=== PATIENT | male | born 1970 | race Caucasian/White ===

== ENCOUNTER 2018-10-07 17:02 | Observation (INO) | payer OTHER, SELFPAY ==
[2018-10-07 17:32] LABS: #Basophils 0.1 thou/uL (0.0-0.2); #Eosinphils 0.2 thou/uL (0.0-0.7); #Lymphocytes 2.2 thou/uL (1.20-3.40); #Monocytes 0.7 thou/uL (0.11-0.59); #Neutrophils 4.3 thou/uL (1.40-6.50); %Basophils 1.2 % (0.0-1.0); %Eosinophils 2.9 % (0.0-10.0); %Lymphocytes 29.5 % (21.0-51.0); %Monocytes 9.2 % (0.0-10.0); %Neutrophils 57.2 % (42.0-75.0); Hemoglobin 14.8 g/dL (14.0-18.0); Mean Corpuscular HGB CONC 33.9 g/dL (32.0-36.0); Mean Corpuscular Hemoglobin 29.4 pg (27.0-31.0); Mean Corpuscular Volume 86.7 fL (78.0-98.0); Mean Platelet Volume 8.6 fL (7.4-10.4); Platelet Count 227 thou/uL (130-400); RBC Distribution Width 12.9 % (11.5-14.5); Red Blood Cell (RBC) Count 5.04 mill/uL (4.70-6.10); White Blood Cell (WBC) Count 7.6 thou/uL (4.8-10.8)
[2018-10-07 17:54] LABS: ALT (SGPT) 14 U/L (8-55); AST (SGOT) 14 U/L (5-34); Albumin 4.1 g/dL (3.5-5.0); Alkaline Phosphatase 130 U/L (40-150); Anion Gap 15 mmol/L (10-20); BUN (Urea Nitrogen) 13 mg/dL (8.9-20.6); Bilirubin, Total 0.6 mg/dL (0.2-1.2); CK (CPK) 80 U/L (30-200); Calc. Creatinine Clearance 0 mL/min (70-130); Calcium 9.8 mg/dL (7.8-10.44); Carbon Dioxide 23 mmol/L (22-29); Chloride 105 mmol/L (98-107); Estimated GFR-MDRD 83; Globulin 3.4 g/dL (2.4-3.5); Glucose 82 mg/dL (70-105); Lipase 31 U/L (8-78); Potassium 4.4 mmol/L (3.5-5.1); Protein, Total 7.5 g/dL (6.0-8.3); Sodium 139 mmol/L (136-145)
[2018-10-07 17:55] LABS: CKMB 0.9 ng/mL (0-6.6); Troponin I Less than 0.010 ng/mL (< 0.028)
--- NOTE | 2018-10-07 19:00 | RAD ---
CHEST ONE VIEW: 10/07/18 COMPARISON: 11/19/15. HISTORY: Pain. FINDINGS: Normal cardiac silhouette. The pulmonary vessels and hilum are normal. Costophrenic angles are clear. No mass. No consolidation. No pneumothorax or osseous abnormalities. IMPRESSION: No acute cardiopulmonary process. POS: [facility]
[2018-10-07] MEDS ORDERED: Ondansetron ODT 4 MG TAB PO PRN ×2 (19:48→20:27)
[2018-10-07] MEDS ORDERED: Nitroglycerin 0.4 MG TAB (25 Tab Bottle) PO PRN (19:48)
[2018-10-07] MEDS ORDERED: Acetaminophen 325 MG TAB PO PRN (19:48)
[2018-10-07] MEDS ORDERED: Non-Formulary Item 1 EACH (Hydroxyzine Hcl [Hydroxyzine Hcl] 50 MG) PO PRN (19:51)
[2018-10-07] MEDS ORDERED: Aspirin 325 MG TAB PO SCH (20:00)
[2018-10-07] MEDS ORDERED: hydrOXYzine 25 MG TAB PO PRN (20:27)
[2018-10-07 21:10] LABS: Troponin I Less than 0.010 ng/mL (< 0.028)
[2018-10-08] LABS: Troponin I Less than 0.010 ng/mL (< 0.028)
[2018-10-08 00:22] VITALS: BMI 25.6
[2018-10-08] MEDS ORDERED: Morphine 2 MG/ML SYRINGE SLOW IVP PRN (01:48)
[2018-10-08] MEDS ORDERED: ADENOSINE 60 MG/20 ML VIAL ONE (08:39)
[2018-10-08] MEDS ORDERED: Citalopram 20 MG TAB PO SCH (09:00)
[2018-10-08] MEDS: Enoxaparin Sodium 40 MG/0.4 ML SYRINGE SC SCH (10:25)
[2018-10-08] MEDS: Aspirin 325 MG TAB PO SCH (10:27)
[2018-10-08] MEDS: Amlodipine 5 MG TAB PO SCH (10:28)
--- NOTE | 2018-10-08 14:08 | NM ---
CARDIAC SPECT WITH EF AND WALL MOTION: HISTORY: A 48-year-old male with a history of chest pain with coronary artery disease, heart catheterization i n 2009, hypertension, and dyslipidemia. COMPARISON: 11/20/2015. FINDINGS: This is an adenosine sestamibi study. The patient was injected with 31.0 mCi Technetium 99m sestamibi intravenously for stress images and 1 0.8 mCi Technetium 99m sestamibi intravenously for resting images. Short axis, vertical long axis, and horizontal long axis images demonstrate minimal decreased activit y in the inferior wall, stable from prior study. No scan evidence for ischemia. TID 1.45. LHR 0.30. EDV elevated at 148 mL. EF 55%. MYOCARDIAL PERFUSION WALL MOTION: Wall motion is normal. IMPRESSION: Elevated end-diastolic volume at 148 mL. TID 1.45. Minimal fixed decreased activity in the inferior wall. No scan evidence for ischemia. POS: [facility]
--- NOTE | 2018-10-08 16:26 | HP ---
PRIMARY CARE PROVIDER: None. CHIEF COMPLAINT: Chest pain. HISTORY OF PRESENT ILLNESS: Mr. Richardson is a pleasant 48-year-old gentleman who was seen at [facility] on October 08, 2018. He reports that the pain is over his right upper chest, on and off for the last 1-2 weeks. He descri bes it as a dull ache, 4/10-5/10 at its worst, occasionally accompanied by jaw tightness, occasionall y accompanied by shortness of breath and lightheadedness. He cannot recall any aggravating or reliev ing factors. He denies any fevers or chills. REVIEW OF SYSTEMS: All other systems reviewed and found to be negative. PAST MEDICAL HISTORY: Significant for coronary artery disease with 40% stenosis of the RCA on cardia c catheterization in 2009, hypertension, anxiety. PAST SURGICAL HISTORY: Tonsillectomy, right knee surgery, and back surgery. SOCIAL HISTORY: The patient denies tobacco use, alcohol use, or recreational drug use. FAMILY HISTORY: He reports that he is adopted and does not know family history. ALLERGIES: TRAZODONE. CURRENT MEDICATIONS: Doxepin 10 mg daily. PHYSICAL EXAMINATION: GENERAL: Mr. Lewis is awake and alert, not in acute distress. VITAL SIGNS: Blood pressure is 120/59, pulse 50, respiratory rate 16, and oxygen saturation 95% on r oom air. He is afebrile. EYES: No scleral icterus. No conjunctival pallor. ENT: Moist mucosal membranes, no definitive tumor accident. NECK: Supple, nontender, trachea is midline. RESPIRATORY: Accessory muscles of breathing are not active. Chest wall movements are symmetric bila terally. LUNGS: Clear to auscultation without wheeze, rhonchi, or crepitations. CARDIOVASCULAR: S1 and S2 are heard, regular. Peripheral pulses palpable. No carotid bruit, no per icardial rub. ABDOMEN: Soft, nontender, bowel sounds are heard, no hepatomegaly, no splenomegaly. NEUROLOGIC: Cranial nerves II-XII are intact. Deep tendon reflexes are 2+. MUSCULOSKELETAL: Power is 5/5 in all 4 extremities. SKIN: No rashes or subcutaneous nodules. LYMPHATIC: No cervical lymphadenopathy. PSYCHIATRIC: Normal mood, normal affect, patient is oriented to person, place, and time. LABORATORY DATA: Mr. Richardson's labs and investigations were reviewed. I reviewed his electrocardiog nahun, which shows normal sinus rhythm, no ST changes to suggest an acute coronary syndrome. I also re viewed his chest x-ray, which does not show any pulmonary infiltrates. He has a normal white count, normal hemoglobin, normal platelet count, normal comprehensive metabolic profile and troponin I that is negative x3. ASSESSMENT AND PLAN: Mr. Richardson is a pleasant 13-year-old gentleman who was seen at [facility] on October 08, 2018. His problem list includes: 1. Chest pain: Etiology is unclear, he does have a history of coronary artery disease. Will be adm itted to the hospital for further management, including stress test. He has been started on aspirin, which I will continue. 2. Hypertension: We will monitor vital signs and titrate antihypertensives as needed. Many thanks for allowing me to participate in Mr. Richardson's care. LEVEL OF RISK: Moderate. LEVEL OF COMPLEXITY: Moderate.
--- NOTE | 2018-10-09 02:24 | CON ---
DATE OF CONSULTATION: 10/08/2018 DATE OF ADMISSION: 10/07/2018 INDICATION FOR CONSULTATION: A 48-year-old patient with a history of single- vessel coronary artery disease, underwent cardiac catheterization in 2009 and was found to have a 40% stenosis in the right coronary artery. His arteries remained free. This is a very small nondominant vessel, which supplied only a small area of myocardium. The patient has been seen twice since that time for chest discomfort. He was seen in 2016, is now seen again with chest discomfort. He describes as being on the right side as a sharp type pain. He described originally got 8/10 is now down to about 2-3/10. He did get some improvement after having nitroglycerin. He underwent a stress testing today, which showed no evidence of ischemia. He did have a minimal fixed decreased activity in the inferior wall, but no evidence of ischemia. He did have a slight elevated end diastolic volume of , TID of 1.45. His EKG does not show any acute changes. His cardiac enzymes have remained negative. It does not appear that he has suffered any myocardial infarction or damage. His pain has been ongoing for the last couple of weeks at least according to the patient, but got worse over the last few days. He has been nonstop. He does have a history of hypertension and dyslipidemia. He was last seen in the office by Dr. Perez. I believe the last year, we need clearance to go back to work. At this time, he remains incarcerated. For his past medical history, social history, family history, review of systems, medications, allergies, please refer to the notes already dictated by the nurse practitioner. PHYSICAL EXAMINATION: GENERAL: Reveals a well-developed, well-nourished gentleman in no acute distress. VITAL SIGNS: Blood pressure 136/81. He is afebrile, respiratory rate is 18, heart rate is 62, O2 saturation 95%. HEENT: Shows head to be normocephalic and atraumatic. Carotid pulses are present. There were no bruits. There is no JVD. The thyroid is not enlarged. Oral mucosa was pink and moist. CHEST: Clear to auscultation. There are no rales, rhonchi, or wheezing noted. CARDIOVASCULAR: Exam reveals a regular rate and rhythm. There is a normal S1, S2. There is no S3, S4. There were no significant murmurs, heaves, thrills, bruits, or rubs. ABDOMEN: Soft, flat, nontender. Positive bowel sounds are present. EXTREMITIES: Showed no clubbing, cyanosis, or edema. Pedal pulses are present. NEUROLOGIC: The patient appears to be intact. He was unable to get out of the bed, as he has ankle cuffs on, otherwise this is a relatively overall normal appearing gentleman. SKIN: Warm and dry. LABORATORY DATA: As noted, has no indication that he suffered a myocardial infarction. Cardiac enzymes are negative. His potassium is 4.4, creatinine is 0.96. His hemoglobin was 14.8 and WBC of 7.6. IMPRESSION: Atypical chest pain in this otherwise healthy appearing gentleman who with some right-sided pain and some known diagnosis of mild coronary artery disease involving the right coronary artery, which was a small nondominant vessel and a negative stress test at this time. I would certainly continue his present medications. There is no indication that he should undergo a repeat cardiac catheterization but would advise him to be able to obtain his medications while he is incarcerated and this may also alleviate some of his discomfort. At this time, he has been placed on amlodipine and aspirin as well as Lovenox, since there is deep venous thrombosis prophylaxis so we can continue that. He is on p.r.n. nitroglycerin as well as other PRNs with overall from a cardiac standpoint, he appears to be stable and most likely can be discharged back to the facility tomorrow. RUSS
--- NOTE | 2018-10-09 07:52 | CON ---
DATE OF CONSULTATION: 10/08/2018 ROOM NUMBER: [id number]. PRIMARY CARE PROVIDER: Unknown. PRIMARY TREE CUTTER: Here at the [facility] is Dr. Perez. REASON FOR CARDIOLOGY CONSULTATION: Status post multiple two-second pauses. HISTORY OF PRESENT ILLNESS: Mr. Richardson is a very pleasant 48 years old male with a signif icant history of coronary artery disease with status post cath, cardiac catheterization in 2009, hype rtension, hyperlipidemia, and anxiety. The patient started having one point pressure-like discomfort over his right upper chest for 2 weeks. However, yesterday the patient has the symptoms constantly all day yesterday and with like feeling to right hand. The patient underwent the stress test t demarcus, which shows no evidence of ischemia with EF 55% and elevated end diastolic volume at 148. TID is 1.45, but since last night, the patient started having multiple two-second pauses. The patient wa s asymptomatic during those episodes. The patient reports that the patient has heart rate going from 30-140 when he was in the [employer] in the . However, since then he has not followed up wit h any bessemer regulator for further evaluation of the patient's heart rhythm. During the initial Cardiolo gy consult assessment, the patient denied chest pain bilateral chest, shortness of breath or di zziness, lightheadedness, or any other cardiac complaints. The patient had a cardiac catheterization in [address] Perez, showing a 40% of stenosis in right C A with EF 55%. Echocardiogram was done in 03/2010, EF 60-65%, diastolic dysfunctions. PAST MEDICAL HISTORY: Coronary artery disease with 40% stenosis in the RCA in 2009, hypertension, hy perlipidemia, and anxiety. PAST SURGICAL HISTORY: Tonsillectomy, right knee surgery x2, and the back surgery x2. FAMILY HISTORY: The patient is adopted that he does not know about the patient's family history. SOCIAL HISTORY: At this moment, he quit. He is an ex-smoker. He quit drinking or using illicit gomez gs in 2007. He continued dipping, but he stopped since 07/2018. ALLERGIES: Patient allergic to TRAZODONE. CURRENT MEDICATIONS: Doxepin 10 mg once a day. REVIEW OF SYSTEMS: The 12-point review of systems was negative, unless otherwise mentioned in the HP I. PHYSICAL EXAMINATION: VITAL SIGNS: Blood pressure 136/81, temperature 98.7, pulse is 62, respiratory 18, O2 sat 95% on yi m air. GENERAL: The patient is alert, oriented x4, in no acute distress. EYES: Extraocular muscle movement intact. ENT AND MOUTH: Oral and nasal mucosa are moist without lesion. NECK: Supple. Normal range of motion. No JVP. RESPIRATORY: Clear to auscultate bilaterally. No wheezing, rhonchi, or crackles noted. CARDIOVASCULAR: Regular rate and rhythm, normal S1, S2. No S3, S4 with no murmur, hives, thrill not ed. Carotid pulses are present without bruit or thrill. A 2+ pulses in bilateral radial and brachia l lower extremities. There are no edema noted. ABDOMEN: Nontender or mass to palpate. Bowel sounds are present. SKIN: Warm, dry. No lesions or bruise rash noted. MUSCULOSKELETAL: The patient is able to move all extremities. Patient deny claudication. NEUROLOGIC: Nonfocal. PSYCHIATRIC: Normal mood, normal affect. Alert, oriented x4. DIAGNOSTIC DATA: Chest x-ray showed no acute cardiopulmonary process. LABORATORY DATA: WBC 7.6, hemoglobin 14.8, hematocrit 43.6, platelet 227. D-dimer is 0.48. Sodium of 139, potassium of 4.4, BUN of 13, creatinine 0.96, AST 14, ALT 14, CK-MB 0.9, troponins less than 0.010 x3. ASSESSMENT AND PLAN: 1. Multiple episodes of two-second pauses. The patient is asymptomatic and the patient does not jayy t the criteria for the pacemaker placement. According to guard who is with the patient, the patient could have event monitor while he is in the [facility]. His guard states that his health care provider in [facility] able to prescribe that order for him while he is in the [facility], but the patient has been asymptoma tic. 2. Chest pain. The patient's stress test is normal. Today, the patient had been on aspirin 325 mg once a day and if possible, we would like to start beta estuardo for this patient. The patient's beta estuardo is on hold at this moment secondary to bradycardia. We like to start a lo w dose of TESFAYE inhibitor or ARB for this patient and some low dose of cholesterol medicine. 3. Hypertension. The patient vital signs are stable at this moment. We would like to continue to m onitor. 4. Hyperlipidemia. He is not on any statin medication. We would like to resume patient's statin me dication. 5. Anxiety. Patient's anxiety level is stable. At this moment, we would like to continue to monito r. Thank you for allowing the Cardiology Service to participate in the care of this patient. We will fo llow along with the patient care team and make further evaluation as appropriate.
[2018-10-09 08:15] VITALS: TEMP 98.2
[2018-10-09] MEDS: Enoxaparin Sodium 40 MG/0.4 ML SYRINGE SC SCH (08:42)
--- NOTE | 2018-10-09 10:42 | PRG ---
DATE OF SERVICE: 10/09/2018 SUBJECTIVE: Mr. Richardson continues to have a sharp very well localized pain in the right upper chest. It is about the size of a fingertip, it has been continuous. He has had no anginal chest pain. OBJECTIVE: VITAL SIGNS: Blood pressure 129/78, pulse 63, regular. LUNGS: Clear. CARDIAC: Normal S1, normal S2. Reviewing the records, he did have a false positive stress test prior to his catheterization in 2009 with decreased uptake of the inferior wall at rest and worse with stress. I reviewed the images on t his occasion to my reading, the patient has some decreased tracer uptake at the inferior wall with re st which improves with stress. There was some calculated transient ischemic dilatation, borderline. ASSESSMENT: 1. Chest pain atypical for angina. 2. All cardiac enzymes are negative. 3. Previously documented single vessel coronary artery disease in a small right coronary artery. Cu rrent pain is atypical for angina. In fact, seems nonanginal. PLAN: 1. Agree with CT coronary angiogram to make sure he has not had a pulmonary embolism. 2. Aspirin. 3. Statin therapy should be resumed. 4. Discussed situation about potentially repeating cardiac catheterization versus medical therapy. I think it is reasonable to continue medical therapy since his pain is non-anginal and no documented ischemia was shown. The patient agrees with that and prefers that approach.
[2018-10-09] MEDS ORDERED: Ketorolac Tromethamine 30 MG/ML VIAL IVP SCH (10:45)
[2018-10-09] MEDS ORDERED: Iopamidol 370 76% 100 ML VIAL ONE (11:49)
[2018-10-09] MEDS ORDERED: Aspirin 325 MG TAB ONE (12:21)
[2018-10-09] MEDS ORDERED: Amlodipine 5 MG TAB ONE (12:21)
[2018-10-09 12:22] VITALS: BP 126/76
[2018-10-09] MEDS: Amlodipine 5 MG TAB PO SCH (12:23)
[2018-10-09] MEDS: Aspirin 325 MG TAB PO SCH (12:23)
--- NOTE | 2018-10-09 13:36 | CT ---
CTA CHEST WITH 3D VOLUME RENDERIN10/09/18 INDICATION: Chest pain. FINDINGS: There is a generalized reduced contrast bolus of the left main pulmonary artery without a discrete fi lling defect visualized. No definite evidence of an acute pulmonary embolus is seen. There is mild at electasis within each lung. No effusion or pneumothorax. Thoracic aorta is nonaneurysmal. No acute pa thology of the visualized upper abdomen. Osseous degenerative change is present. IMPRESSION: No evidence of an acute pulmonary embolus. POS: [facility]
[2018-10-09] MEDS ORDERED: Atorvastatin Calcium 40 MG TAB PO SCH (21:00)
--- NOTE | 2018-10-09 23:12 | DIS ---
DATE OF ADMISSION: 10/07/2018 DATE OF DISCHARGE: 10/09/2018 DISCHARGE DIAGNOSES: 1. Chest pain. 2. Most likely musculoskeletal etiology for chest pain. CONSULTATIONS DURING THIS HOSPITALIZATION: Cardiology, Dr. Wing. DISCHARGE MEDICATIONS: Amlodipine 5 mg daily, aspirin 325 mg daily, Lipitor 40 mg at bedtime. CONDITION OF PATIENT ON THE DAY OF DISCHARGE: Stable. I assessed Mr. Richardson on the day of discharge. He denies any chest pain or shortness of breath. Vital signs are stable. S1 and S2 are heard, regular. Lungs are clear to auscultation bilaterally. HOSPITAL COURSE: Mr. Richardson is a pleasant 48-year-old gentleman who was admitted to [facility] on 10/08/2018 for atypical chest pain. He had a nuclear stress test, which showed left ventricular ejection fraction of 55%. He had minimal fixed decreased activity in the inferior wall. There was no scan evidence for ischemia. He had a mildly elevated D-dimer level of 0.48. He had CT angiogram of the chest on 10/09/2018, which did not show any evidence of an acute pulmonary embolism. He has been cleared for discharge by Cardiology Service. He is being [facility] to [facility]. DISCHARGE DESTINATION: [facility], from where he was admitted to the hospital. [facility]
== END 2018-10-09 14:12 ==
LOC: ERS 17:02 → 2SW 19:02 → ERS 20:16
PROVIDERS: ADMIT Hospitalist; ATTEND Hospitalist
DX: R07.89 Other chest pain (principal); I25.10 Atherosclerotic heart disease of native coronary artery without angina pectoris; F41.9 Anxiety disorder, unspecified; I10 Essential (primary) hypertension; Z87.891 Personal history of nicotine dependence; Z79.899 Other long term (current) drug therapy; Z88.8 Allergy status to other drugs, medicaments and biological substances
CPT/HCPCS: 36415; 71045; 71275; 78452; 80053; 82550; 82553; 83690; 83880; 84484; 85025; 85379; 93005; 93017; 94760; 96360; 96361; 96372; 96374; A9500; G0378; J0153; J1885

== ENCOUNTER 2024-10-04 10:45 | Outpatient (CLI) | payer OTHER | END 2024-10-04 10:46 | disposition home or self-care (01) | LOC: BICRAD 10:45 | PROVIDERS: ATTEND Internal Medicine | DX: Z02.71 Encounter for disability determination (principal); M43.26 Fusion of spine, lumbar region; M47.816 Spondylosis without myelopathy or radiculopathy, lumbar region | CPT/HCPCS: 72100 ==